=== PATIENT | female | born 1950 | race Caucasian/White ===

== ENCOUNTER 2016-11-28 05:05 | Emergency (ER) | payer MEDICARE, BC ==
[2012-11-30 06:40] VITALS: BMI 30.1
[2016-11-28 05:48] LABS: BASOPHILS 0.5 % (0.0-2.0); EOSINOPHILS 1.1 % (0-7); HEMATOCRIT 34.2 % (36.0-48.0); HEMOGLOBIN 11.5 g/dL (12-16); IMMATURE GRANULOCYTES 0.6 % (0-5); LYMPHOCYTES 21.8 % (15-50); MCHC 33.6 g/dL (31.0-37.0); MCV 89.3 fL (80.0-100.0); MEAN PLATELET VOLUME 9.6 fL (7.4-10.4); MONOCYTES 12.2 % (2-11); NEUTROPHILS 63.8 % (40-80); RBC 3.83 10x6/uL (4.00-5.40); RDW 13.1 % (11.5-14.5); WBC 10.3 10x3/uL (4.8-10.8)
[2016-11-28 05:52] LABS: PLATELET COUNT 176 10x3/uL (130-400)
[2016-11-28 05:53] LABS: APPEARANCE CLEAR (CLEAR); BILIRUBIN NEGATIVE (NEGATIVE); COLOR YELLOW (YELLOW); GLUCOSE NEGATIVE (NEGATIVE); KETONE NEGATIVE (NEGATIVE); LEUKOCYTE ESTERASE NEGATIVE (NEGATIVE); NITRITE NEGATIVE (NEGATIVE); PROTEIN NEGATIVE (NEGATIVE); UROBILINOGEN NORMAL (NORMAL)
[2016-11-28 06:02] LABS: ALBUMIN 3.2 g/dL (3.4-5.0); ALKALINE PHOSPHATASE 83 U/L (46-116); ALT (SGPT) 24 U/L (10-68); BILIRUBIN - TOTAL 0.47 mg/dL (0.2-1.3); CALC OSMOLALITY 272 mosm/kg (275-300); CALCIUM 9.3 mg/dL (8.5-10.1); CARBON DIOXIDE 24.4 mmol/L (21.0-32.0); CHLORIDE - SERUM 100 mmol/L (98-107); GLUCOSE 109 mg/dL (74-106); POTASSIUM - SERUM 3.9 mmol/L (3.5-5.1); PROTEIN - SERUM 7.1 g/dL (6.4-8.2); SODIUM 136 mmol/L (136-145); UREA NITROGEN 13 mg/dL (7-18); eGFR NON AFRICAN AMERICAN 58 mL/min (90-120)
[2016-11-28 06:05] LABS: AMYLASE - SERUM 61 U/L (25-115); LIPASE 279 U/L (73-393)
[2016-11-28 06:09] LABS: TROPONIN-I < 0.017 ng/mL (0.000-0.060)
== END 2016-11-28 08:57 | disposition home or self-care (01) ==
LOC: D.ER 05:05
PROVIDERS: Family Medicine
DX: R10.9 Unspecified abdominal pain (principal); R11.10 Vomiting, unspecified; I10 Essential (primary) hypertension; F32.9 Major depressive disorder, single episode, unspecified

== ENCOUNTER → 2016-12-09 08:16 | Outpatient (CLI) | payer MEDICARE, BC ==
[2012-11-30 06:40] VITALS: BMI 30.1
== END | disposition home or self-care (01) ==
LOC: D.NM 08:16
DX: R11.0 Nausea (principal)

== ENCOUNTER → 2018-11-28 08:17 | Outpatient (CLI) | payer MEDICARE ==
[2012-11-30 06:40] VITALS: BMI 30.1
== END | disposition home or self-care (01) ==
LOC: D.CT
DX: R10.12 Left upper quadrant pain (principal)

== ENCOUNTER → 2019-01-11 08:38 | Outpatient (CLI) | payer MEDICARE ==
[2012-11-30 06:40] VITALS: BMI 30.1
== END | disposition home or self-care (01) ==
LOC: D.MRI 08:38
PROVIDERS: ATTEND Emergency Medicine
DX: M54.12 Radiculopathy, cervical region (principal)